=== PATIENT | female | born 1990 | race Caucasian/White ===

== ENCOUNTER 2021-04-17 02:30 | Emergency (ER) | payer OTHER ==
[~2021-04-17] VITALS: Ht 188 cm; Wt 116.2 kg
--- NOTE | 2021-04-17 02:48 | PHYS DOC ---
Adult General HPI HPI Patient is a 30-year-old female with a past medical history of generalized anxiety disorder and anxiety attacks on Lexapro presents with an anxiety attack. States that right before she went to bed she started feeling anxious and like her heart was racing and checked her pulse and was in the 90s. States that this happens about once a month. States she started the Lexapro about 5 weeks ago. Denies any recent traumas, travels, illnesses, fevers, chest pain, shortness of breath, abdominal pain, nausea, vomiting, dysuria, hematuria, blood in the stool or diarrhea. States she is not and recently finished her menstrual cycle which was normal. States she is eating and drinking normally. States she did have a Monster energy drink before coming in and does not consume caffeine daily. States she is making urine and stool normally for her. Denies any alcohol or drug use. Review of Systems Review of Systems Review of systems otherwise unremarkable except noted in HPI Physical Exam Physical Exam Constitutional: Well developed, well nourished, no acute distress, non-toxic appearance. [] HENT: Normocephalic, atraumatic, bilateral external ears normal, oropharynx moist, no oral exudates, nose normal. [] Eyes: conjunctiva normal, no discharge. [] Neck: Normal range of motion, no tenderness, supple, no stridor. [] Cardiovascular:Heart rate regular rhythm, no murmur [] Lungs & Thorax: Bilateral breath sounds clear to auscultation [] Abdomen: soft, no tenderness, no masses, no pulsatile masses. [] Skin: Warm, dry, no erythema, no rash. [] Back: No tenderness, no CVA tenderness. [] Extremities: No tenderness, no cyanosis, no clubbing, ROM intact, no edema. [] Neurologic: Alert and oriented X 3, no focal deficits noted able to sit, stand and walk without issue, no numbness/weakness/tingling. [] Psychologic: Affect normal, judgement normal, mood initially anxious which resolved in the ED [] EKG EKG Rate of 75, QRS of 90, QTc of 447, no STEMI, PVC. Right bundle branch inc omplete [] Radiology/Procedures Radiology/Procedures [] Heart Score C/O Chest Pain: No Risk Factors: Risk Factors: DM, Current or recent (<one month) smoker, HTN, HLP, family history of CAD, obesity. Risk Scores: Risk Factors: DM, Current or recent (<one month) smoker, HTN, HLP, family history of CAD, obesity. Course & Med Decision Making Course & Med Decision Making Patient is a 30-year-old female who presents with anxiety Vital signs not concerning. Physical exam noted above. EKG noted above with no STEMI. Given diazepam. Patient otherwise feeling well in the emergency department and asymptomatic. States she is feeling better and would like to just go on home. Discussed all findings with patient. Discussed anxiety/panic attacks and strategies at home to manage this. Advised to call primary care physician in the morning to update on ED visit and set up an appointment as soon as possible. Gave return precautions to the ED. Patient grateful, verbalized understanding and agreed with plan of discharge. [] Dragon Disclaimer Dragon Disclaimer This electronic medical record was generated, in whole or in part, using a voice recognition dictation system. Departure Departure: Impression: Primary Impression: Anxiety Disposition: 01 HOME / SELF CARE / HOMELESS Condition: GOOD Referrals: NON,STAFF (PCP) HANS MCINTYRE Patient Instructions: Anxiety and Panic Attacks, Nonspecific Tachycardia Additional Instructions: Thank you for coming into the emergency department tonight and allowing us to take care of you. Please read the attached information carefully to go back over some of the things we discussed. It is very important that you call your primary care physician first thing in the morning to discuss your ED visit and how you are doing on your Lexapro. Please be sure to eat and drink normally and refrain from any caffeine-containing drinks as this could exacerbate anxiety and increased heart rate. Please come back to the ED with new or concerning symptoms as discussed. PATRICIA SIMPSON MD Apr 17, 2021 02:48
[2021-04-17] MEDS ORDERED: diazePAM 5 MG TABLET. PO ONE (03:00)
[2021-04-17 03:02] VITALS: BP 99/64
--- NOTE | 2021-04-17 06:31 | EKG ---
[address] [address] Test Date: 2021-04-17 Test Time: 02:39:48 Pat Name: HEMANTH CHOPRA Department: Room: Gender: F Budget Specialist: MATT : 1990 Requested By: PATRICIA SIMPSON Order Number: [id number] Reading MD: Antolin Santiago Measurements Intervals [place] Rate: 75 P: -18 PA: 166 QRS: 58 QRSD: 90 T: 17 QT: 398 QTc: 447 Interpretive Statements SINUS RHYTHM VENTRICULAR PREMATURE COMPLEX(ES) INCOMPLETE RIGHT BUNDLE BRANCH BLOCK Electronically Signed On 04-18-2021 16:02:29 CDT by Antloin Santiago
== END 2021-04-17 03:10 | disposition home or self-care (01) ==
LOC: ER 02:30
DX: F41.1 Generalized anxiety disorder (principal)
CPT/HCPCS: 93005; 99283